=== PATIENT | female | born 1990 | race Caucasian/White ===

== ENCOUNTER 2021-05-07 18:16 | Emergency (ER) | payer SELFPAY ==
[~2021-05-07] VITALS: Ht 167.6 cm; Wt 65.8 kg
[2021-05-07 18:20] VITALS: BP 99/66
--- NOTE | 2021-05-07 18:29 | NUR ---
PT W/C ASSISTED TO BED 4
--- NOTE | 2021-05-07 18:30 | NUR ---
EMT at bedside for EKG
[2021-05-07] MEDS ORDERED: ONDANSETRON 4 MG ODT PO ONE (18:50)
[2021-05-07] MEDS ORDERED: NACL 0.9% 1,000 ML IV ONE (18:50)
--- NOTE | 2021-05-07 18:50 | NUR ---
30 y/o F BIB self with c/c abdominal and low back pain. Patient A&Ox4, ambulatory reports acute onset of chest pain 2 hours ago that alleviated to 0/10 after Advil 200mg. Patient reports low BP, weakness, dizziness, nausea, chills. Patient reports suprapubic pain, initially 10/10 now 6/10, stabbing/intermittent, radiating to low back. Patient states pain begain this morning at 11AM. Reports Advil 200mg at 3pm with relief to suprapubic and back pain. Patient reports her period began yesterday and more heavier bleeding than usual with clots; which she states has been occuring for past few months and is not normal for her. Reports IUD placement. Denies dysuria or other urinary symptoms; vomiting, diarrhea, constipation, SOB, cough, fever. Last BM; today normal/semi-formed/brown. Pt placed onto hand booked folder and stitcher. Bed locked in lowest position, side rails x 1, call light in reach. PMH: Low WBC 2 years ago Meds/Sx: Denies NKA
--- NOTE | 2021-05-07 19:05 | NUR ---
Patient ambulated to restroom with steady/even gait.
--- NOTE | 2021-05-07 19:08 | NUR ---
Lab at bedside.
--- NOTE | 2021-05-07 19:13 | NUR ---
Report and transfer of care endorsed to MONIKA Bernstein.
--- NOTE | 2021-05-07 19:13 | NUR ---
RECIEVED REPORT FROM MONIKA DAVIS FOR CONTINUITY OF CARE.
--- NOTE | 2021-05-07 19:29 | NUR ---
IV 20G EST TO LEFT AC. PT PLACED ON BIT SHARPENER OPERATOR.
[2021-05-07 19:39] LABS: BASOPHILS # (AUTO) 0.1 K/uL (0.00-0.22); BASOPHILS % (AUTO) 0.8 % (0.0-2.0); EOSINOPHILS % (AUTO) 0.1 % (0.0-4.0); HEMATOCRIT 35.9 % (36-48); HEMOGLOBIN 12.4 g/dL (12.0-16.0); LYMPHOCYTES % (AUTO) 10.4 % (20.5-51.1); MEAN CORPUSCULAR HEMOGLOBIN 32 pg (27-31); MEAN CORPUSCULAR HGB CONC 34 g/dL (33-37); MEAN CORPUSCULAR VOLUME 92.4 fL (80-94); MONOCYTES # (AUTO) 0.4 K/uL (0.8-1.0); MONOCYTES % (AUTO) 4.5 % (1.7-9.3); NEUTROPHILS # (AUTO) 8.1 K/uL (1.8-7.7); NEUTROPHILS % (AUTO) 84.2 % (42.2-75.2); PLATELET COUNT (AUTO) 173 K/uL (140-450); RED BLOOD CELL COUNT(AUTO) 3.88 MIL/uL (4.20-5.40); RED CELL DISTRIBUTION WIDTH 13.4 % (11.6-13.7); WHITE BLOOD COUNT (AUTO) 9.6 K/uL (4.8-10.8)
--- NOTE | 2021-05-07 19:56 | NUR ---
PT AMBULATED TO RESTROOM WITH STEADY GAIT.
[2021-05-07 19:59] LABS: ANION GAP 10.6 (8-16); CARBON DIOXIDE 28.1 mmol/L (21-32); CREATININE 0.9 mg/dL (0.6-1.3); POTASSIUM 3.7 mmol/L (3.5-5.1); TOTAL BILIRUBIN 0.3 mg/dL (0.0-1.0)
[2021-05-07] MEDS ORDERED: IBUP-2213 PO (20:14)
[2021-05-07] MEDS ORDERED: ONDA-24 PO (20:14)
[2021-05-07 20:33] VITALS: BP 99/66
--- NOTE | 2021-05-07 20:33 | NUR ---
Patient discharged with v/s stable. Written and verbal after care instructions given and explained. Patient alert, oriented and verbalized understanding of instructions. Ambulatory with steady gait. All questions addressed prior to discharge. ID band removed. Patient advised to follow up with PMD. Rx of IBUPROFEN AND ZOFRAN ODT given. Patient educated on indication of medication including possible reaction and side effects. Opportunity to ask questions provided and answered.
== END 2021-05-07 20:33 | disposition home or self-care (01) ==
LOC: MED 18:16
DX: N92.0 Excessive and frequent menstruation with regular cycle (principal); N94.6 Dysmenorrhea, unspecified; Z98.890 Other specified postprocedural states
CPT/HCPCS: 36415; 80053; 83690; 84702; 85025; 86886; 86900; 86901; 93005; 96360; 99284; Q0162

== ENCOUNTER 2022-02-06 03:32 | Emergency (ER) | payer MEDICAID ==
[~2022-02-06] VITALS: Ht 167.6 cm; Wt 64.6 kg
[~2022-02-06 03:32] MED LIST: IBUP-2213 PO; ONDA-188 PO
[2022-02-06 03:39] VITALS: BP 105/73
--- NOTE | 2022-02-06 04:11 | NUR ---
31 Y/O FEMALE BIB SELF, C/O N/V X2 WEEKS. PATIENT PRESENTS TO ED WITH FATIGUE AND PALE. PT STATES THE ONLY MEDICATION THAT HELPS IS ZOFRAN AND SHE LOST HER MEDICATION YESTERDAY. PT STATES SHE HAS NOT BEEN ABLE TO OLD ANY FOOD OR WATER DOWN AND FEELS DEHYDRATED. SKIN IS PALE/WARM/DRY; AAOX4 WITH EVEN AND STEADY GAIT; LUNGS CLEAR BL; HR EVEN AND REGULAR; PT DENIES ANY FEVER, CP, SOB, OR COUGH AT THIS TIME; PATIENT STATES PAIN OF 6/10 AT THIS TIME; VSS; PATIENT POSITIONED FOR COMFORT; HOB ELEVATED; BEDRAILS UP X2; BED DOWN. ER MD MADE AWARE OF PT STATUS. PT STATES SHE HAS NOT BEEN ABLE TO GO AND GET CARE DUE TO FEELING SICK. PT IS 7 WEEKS . HX: SUBCHORIONIC HEMORHHAGE NKDA MED: ZOFRAN
[2022-02-06] MEDS ORDERED: ONDANSETRON 4 MG/2 ML VIAL IVP ONE ×2 (04:15→06:45)
[2022-02-06] MEDS ORDERED: LACTATED RINGERS 1,000 ML IV ONE (04:15)
--- NOTE | 2022-02-06 04:39 | NUR ---
IV TO RT AC 20G ESTABLISHED. BLOOD COLLECTED AND TAKEN TO LAB. PT MEDICATED PER ORDERS AND FLUIDS RUNNING
[2022-02-06 05:03] LABS: ANION GAP 11.3 (8-16); CARBON DIOXIDE 27.2 mmol/L (21-32); CREATININE 0.8 mg/dL (0.6-1.3); POTASSIUM 3.5 mmol/L (3.5-5.1)
[2022-02-06] MEDS ORDERED: ONDA-188 PO (05:39)
[2022-02-06] MEDS ORDERED: NACL 0.9% 1,000 ML IV ONE (05:40)
--- NOTE | 2022-02-06 06:41 | NUR ---
PER MD, PT WAS ROAD TESTED. PT WAS ABLE TO WALK SLOWLY AND UNASSISTED. PT IS STILL UNABLE TO PROVIDE URINE AND GETTING OUT OF BED MADE HER NAUSEOUS.
--- NOTE | 2022-02-06 07:48 | NUR ---
Pt received at this time from Lon FRANK . Transfer of care at this time.
[2022-02-06 08:26] VITALS: BP 93/56
--- NOTE | 2022-02-06 08:27 | NUR ---
Patient discharged with v/s stable. Written and verbal after care instructions given and explained. Patient alert, oriented and verbalized understanding of instructions. Ambulatory with mother to car. All questions addressed prior to discharge. ID band removed. Patient advised to follow up with PMD. Rx of ondansetron (sent) given. Patient educated on indication of medication including possible reaction and side effects. Opportunity to ask questions provided and answered.
== END 2022-02-06 08:27 | disposition home or self-care (01) ==
LOC: MED 03:32
DX: O21.8 Other vomiting complicating pregnancy (principal); O26.891 Other specified pregnancy related conditions, first trimester; Z79.899 Other long term (current) drug therapy
CPT/HCPCS: 36415; 80048; 96361; 96374; 96375; 99284; J2405; J7030; J7120

== ENCOUNTER 2022-02-12 15:38 | Emergency (ER) | payer MEDICAID ==
[~2022-02-12] VITALS: Ht 167.6 cm; Wt 62.7 kg
[2022-02-12 15:49] VITALS: BP 105/69
[2022-02-12] MEDS ORDERED: ONDANSETRON 4 MG/2 ML VIAL IVP ONE (16:25)
[2022-02-12] MEDS ORDERED: NACL 0.9% 1,000 ML IV ONE (16:25)
[2022-02-12 16:58] LABS: BASOPHILS % (AUTO) 0.4 % (0.0-2.0); EOSINOPHILS # (AUTO) 0.1 K/uL (0-0.4); EOSINOPHILS % (AUTO) 0.9 % (0.0-4.0); HEMATOCRIT 37.4 % (36-48); HEMOGLOBIN 13.1 g/dL (12.0-16.0); LYMPHOCYTES # (AUTO) 1.2 K/uL (2.5-16.5); LYMPHOCYTES % (AUTO) 20.3 % (20.5-51.1); MEAN CORPUSCULAR HEMOGLOBIN 31 pg (27-31); MEAN CORPUSCULAR HGB CONC 35 g/dL (33-37); MEAN CORPUSCULAR VOLUME 88.4 fL (80-94); MONOCYTES # (AUTO) 0.3 K/uL (0.8-1.0); MONOCYTES % (AUTO) 5.1 % (1.7-9.3); NEUTROPHILS # (AUTO) 4.3 K/uL (1.8-7.7); NEUTROPHILS % (AUTO) 73.3 % (42.2-75.2); PLATELET COUNT (AUTO) 199 K/uL (140-450); RED BLOOD CELL COUNT(AUTO) 4.24 MIL/uL (4.20-5.40); WHITE BLOOD COUNT (AUTO) 5.8 K/uL (4.8-10.8)
[2022-02-12 17:19] LABS: APPEARANCE,URINE CLEAR (CLEAR); BILIRUBIN,URINE 1+ (NEGATIVE); BLOOD, URINE NEGATIVE (NEGATIVE); LEUKOCYTE ESTERASE ,URINE NEGATIVE (NEGATIVE); NITRITE, URINE NEGATIVE (NEGATIVE); UGLUCOSE NEGATIVE (NEGATIVE)
[2022-02-12 17:34] LABS: ANION GAP 13.3 (8-16); CARBON DIOXIDE 26.9 mmol/L (21-32); CREATININE 0.7 mg/dL (0.6-1.3); MAGNESIUM 1.9 mg/dL (1.8-2.4); PHOSPHORUS 4.6 mg/dL (2.5-4.9); POTASSIUM 4.2 mmol/L (3.5-5.1); TOTAL BILIRUBIN 0.5 mg/dL (0.0-1.0)
[2022-02-12 17:41] LABS: COLOR,URINE AMBER (YELLOW)
[2022-02-12] MEDS ORDERED: ONDA-188 SL (17:49)
[2022-02-12 18:25] VITALS: BP 97/57
== END 2022-02-12 18:25 | disposition home or self-care (01) ==
LOC: MED 15:38
DX: O21.8 Other vomiting complicating pregnancy (principal); O26.891 Other specified pregnancy related conditions, first trimester; R10.13 Epigastric pain; Z3A.01 Less than 8 weeks gestation of pregnancy
CPT/HCPCS: 36415; 80053; 81003; 83735; 84100; 84702; 85025; 96361; 96374; 99283; J2405; J7030

== ENCOUNTER 2022-02-23 17:44 | Emergency (ER) | payer MEDICAID ==
[~2022-02-23] VITALS: Ht 167.6 cm; Wt 59.9 kg
[~2022-02-23 17:44] MED LIST changes: +ONDA-188 SL
[2022-02-23 17:57] VITALS: BP 108/69
[2022-02-23] MEDS ORDERED: ONDANSETRON 4 MG ODT PO ONE (19:05)
[2022-02-23 19:42] LABS: BASOPHILS % (AUTO) 0.6 % (0.0-2.0); EOSINOPHILS # (AUTO) 0.1 K/uL (0-0.4); HEMATOCRIT 38.4 % (36-48); HEMOGLOBIN 13.3 g/dL (12.0-16.0); LYMPHOCYTES # (AUTO) 1.3 K/uL (2.5-16.5); LYMPHOCYTES % (AUTO) 20.1 % (20.5-51.1); MEAN CORPUSCULAR HEMOGLOBIN 31 pg (27-31); MEAN CORPUSCULAR HGB CONC 35 g/dL (33-37); MEAN CORPUSCULAR VOLUME 88.7 fL (80-94); MONOCYTES # (AUTO) 0.3 K/uL (0.8-1.0); MONOCYTES % (AUTO) 5.5 % (1.7-9.3); NEUTROPHILS # (AUTO) 4.6 K/uL (1.8-7.7); NEUTROPHILS % (AUTO) 72.8 % (42.2-75.2); PLATELET COUNT (AUTO) 226 K/uL (140-450); RED BLOOD CELL COUNT(AUTO) 4.33 MIL/uL (4.20-5.40); RED CELL DISTRIBUTION WIDTH 12.9 % (11.6-13.7); WHITE BLOOD COUNT (AUTO) 6.3 K/uL (4.8-10.8)
[2022-02-23] MEDS ORDERED: ONDANSETRON 4 MG TAB ONE (20:31)
--- NOTE | 2022-02-23 20:37 | NUR ---
PT STATES SHE DOESN'T WANT TO WAIT, SHE WANTS TO LEAVE WITH A RX FOR ZOFRAN
[2022-02-23] MEDS ORDERED: ONDA-188 PO (20:39)
--- NOTE | 2022-02-23 20:40 | NUR ---
TO US VIA W/C
[2022-02-23 22:04] VITALS: BP 108/69
== END 2022-02-23 23:03 | disposition home or self-care (01) ==
LOC: MED 17:44
DX: O21.0 Mild hyperemesis gravidarum (principal); O26.891 Other specified pregnancy related conditions, first trimester; N83.201 Unspecified ovarian cyst, right side; Z3A.10 10 weeks gestation of pregnancy; Z79.899 Other long term (current) drug therapy
CPT/HCPCS: 36415; 76801; 83690; 84702; 85025; 86901; 99284; Q0092; Q0162

== ENCOUNTER 2022-04-25 21:10 | Emergency (ER) | payer MEDICAID ==
[~2022-04-25] VITALS: Ht 167.6 cm; Wt 68.9 kg
[2022-04-25 21:13] VITALS: BP 92/64
--- NOTE | 2022-04-25 21:19 | NUR ---
patient to lobby
--- NOTE | 2022-04-25 21:33 | NUR ---
PT AMBULATED TO BED 08
--- NOTE | 2022-04-25 21:35 | NUR ---
Patient BIB by family from home. C/O toothache x 1 month. Patient had toothache over a month, preg 19 weeks, no vaginal bleeding, no cramping, [id number].
[2022-04-25] MEDS ORDERED: ACET-10509 PO (23:00)
--- NOTE | 2022-04-25 23:24 | NUR ---
PER PATIENT NO ONE WAS SEEING HER AND ASKED QUESTIONS AND DECIDED TO LEAVE
--- NOTE | 2022-04-25 23:25 | NUR ---
PATIENT ELOPED FROM FACILITY. DISCHARGE INSTRUCTIONS NOT GIVEN TO PATIENT. DR. ATKINSON NOTIFIED.
--- NOTE | 2022-04-25 23:25 | NUR ---
Raissa taylor in [facility] - 04/25/22 at 2328 by JESSICA PATIENT LEFT WITHOUT BEING SEEN BY DR. ATKINSON. NO FURTHER CARE PROVIDED FOR PATIENT.
== END 2022-04-25 23:25 | disposition left against medical advice (07) ==
LOC: MED 21:10
DX: O99.612 Diseases of the digestive system complicating pregnancy, second trimester (principal); K04.7 Periapical abscess without sinus; Z3A.19 19 weeks gestation of pregnancy
CPT/HCPCS: 99282

== ENCOUNTER 2022-12-29 15:48 | Emergency (ER) | payer MEDICAID ==
[~2022-12-29] VITALS: Ht 167.6 cm; Wt 74.4 kg
[~2022-12-29 15:48] MED LIST changes: +ACET-10509 PO
[2022-12-29 16:34] VITALS: BP 119/65
[2022-12-29] MEDS ORDERED: ALUMINUM HYD/MAG/SIMETHICONE 30 ML, DICYCLOMINE HCL LIQUID 20 MG, LIDOCAINE VISCOUS 2% ... PO ONE ×3 (17:05)
[2022-12-29] MEDS ORDERED: ONDANSETRON 4 MG ODT PO ONE (17:05)
[2022-12-29] MEDS ORDERED: ALUMINUM HYD/MAG/SIMETHICONE 30 ML UDC ONE (17:12)
[2022-12-29] MEDS ORDERED: DICYCLOMINE HCL LIQUID 10 MG/5 ML UDC ONE (17:12)
--- NOTE | 2022-12-29 17:20 | NUR ---
32/F WALKED IN C/O NVD ONSET 1 DAY. PT ALSO REPORTS ABD PAIN /10. DENIES BLOOD IN VOMIT OR STOOL. AFEBRILE AT TRIAGE. PMH: GAVE 3 MONTHS AGO.
[2022-12-29] MEDS ORDERED: SIME80TA41 PO (18:24)
[2022-12-29] MEDS ORDERED: ONDA-188 PO (18:24)
--- NOTE | 2022-12-29 18:33 | NUR ---
Patient discharged with v/s stable. Written and verbal after care instructions ABOUT VIRAL GASTROENTERITIS given and explained. Patient alert, oriented and verbalized understanding of instructions. Ambulatory with steady gait. All questions addressed prior to discharge. ID band removed. Patient advised to follow up with PMD. Rx of SIMETHICONE, ZOFRAN given. Patient educated on indication of medication including possible reaction and side effects. Opportunity to ask questions provided and answered.
== END 2022-12-29 18:32 | disposition home or self-care (01) ==
LOC: MED 15:48
DX: A08.4 Viral intestinal infection, unspecified (principal); Z79.899 Other long term (current) drug therapy
CPT/HCPCS: 81025; 99283; Q0162